=== PATIENT | male | born 1990 | race African-American/Black ===

== ENCOUNTER 2024-03-28 02:14 | Emergency (ER) | payer SELFPAY ==
[2024-03-28 02:14] VITALS: BP 169/108; PULSE 84; RESP 16; TEMP 36.8; O2SAT 100; BMI 53.1
[2024-03-28 02:17] VITALS: O2SAT 96
[2024-03-28] MEDS: lidocaine-epi 1% 20 mL INJ INJECTION (02:29)
[2024-03-28 02:30] VITALS: BP 169/108; O2SAT 98
--- NOTE | 2024-03-28 02:40 | W.ED.EXTPRO ---
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 He does have a history of varicose veins he called 911 and they placed couple different styles of tourniquets on his lower extremity bandaged up and brought him to the emergency room. Patient is not on any medicine, no anticoagulation, no bleeding deficiencies. Bleeding is controlled. Related Data Allergies Allergy/AdvReac Type Severity Reaction Status Date / Time No Known Allergies Allergy Verified 03/28/24 02:21 Review of Systems General: Reports: 10 or more systems reviewed and unremarkable except in HPI and below Physical Exam Const: COMMON NORMALS: no acute distress, average body habitus, patient oriented x3, no limitations, healthy appearing, alert and well nourished HENMT: COMMON NORMALS: normocephalic, atraumatic, hearing grossly normal bilaterally, external ears normal, Normal external nose present and moist oral mucous membranes HEAD & SCALP: normocephalic and atraumatic NOSE: Normal external nose present EXTERNAL EAR: Yes external ears normal Neck/C-Spine: COMMON NORMALS: full ROM, no lymphadenopathy, supple, no meningeal signs, no JVD and Thyroid normal THYROID: Thyroid normal Chest: COMMONS NORMALS: normal inspection of the chest and normal palpation of entire chest wall Cardio: COMMON NORMALS: no JVD, regular rate, regular rhythm, S1 normal heart sound present, S2 normal heart sound present, No gallops present (Cardio), No clicks present (Cardio), No murmurs present (Cardio) and No rub (Cardio) RATE: regular rate RHYTHM: regular rhythm HEART SOUNDS: S1 normal heart sound present and S2 normal heart sound present GI: COMMON NORMALS: Normal to inspection, nondistended, normoactive bowel sounds present, Soft to palpation, non-tender, No hepatosplenomegaly present and no masses PALPATION: Yes Soft to palpation and Yes No hepatosplenomegaly present Neuro: COMMON NORMALS: patient oriented x3 SENSORIUM/ORIENTATION: Yes alert MENINGEAL SIGNS: Yes no meningeal signs Skin: NARRATIVE SKIN EXAM: Right lower extremity venous bleed, bleeding controlled with direct pressure. He will be attempted to be sutured tight. Course Vital Signs: Vital signs: Vital Signs Temperature 98.2 F 03/28/24 02:14 Pulse Rate 87 03/28/24 02:44 Respiratory Rate 16 03/28/24 02:14 Blood Pressure 150/85 03/28/24 03:00 Pulse Oximetry 100 03/28/24 03:00 Oxygen Delivery Me thod Room Air 03/28/24 02:14 MDM - Extremity (Nontraumatic) Medical Decision Making Approximate 8 cc lidocaine was instilled around the bleeding varicose vein site. The 1 4-0 nylon figure 8 suture was placed with total bleeding controlled with no complications patient tolerated procedure well. Medical Records I reviewed the patient's medical records. Lab Data I reviewed the patient's lab results. No radiology studies performed this visit Discharge Plan Discharge Patient Disposition: Home Clinical Impression: Bleeding from varicose vein Condition: Stable Discharge Orders: Discharge ED (Routine); Ordered 03/28/24 Ordered By: Dante Hernandez Activity Restrictions/Additional Instructions: 1 [id number] suture was placed across your varicose vein bleeding site. This controlled the bleeding very well. Please keep this area clean and dry change dressings on it as needed. Please have someone remove the suture in approximately 7 days. Please follow-up with your family practice physician within the next 7 to 10 days for further evaluation and treatment. Coding Level of Care Code ED [employer] Associate for Barbie Barnard
[2024-03-28 02:44] VITALS: PULSE 87
[2024-03-28 03:00] VITALS: BP 150/85; O2SAT 100
[2024-03-28 03:17] VITALS: BP 154/85; PULSE 90; RESP 16; O2SAT 99
== END 2024-03-28 03:38 | disposition home or self-care (01) ==
PROVIDERS: Emergency Provider Emergency Medicine
DX: I83.891 Varicose veins of right lower extremity with other complications (principal)
CPT/HCPCS: 99283